=== PATIENT | male | born 1955 ===

== ENCOUNTER → 2024-04-25 | Day surgery (SDC) | payer OTHER, MEDICARE ==
[2024-04-13 14:38] LABS: Absolute Eosinophils 0.1 K/uL (0-0.5); Absolute Monocytes 0.7 K/uL (0.1-1.3); Absolute Neutrophil 5.4 K/uL (1.8-8.0); Basophils % 0.6 % (0-1.3); Eosinophils % 1.4 % (0-4.4); Hematocrit 43.4 % (39.6-49.0); Hemoglobin 15.1 g/dL (13.6-17.9); MCH 35.9 pg (27.0-35.0); MCHC 34.7 g/dL (32.0-36.0); MCV 103.3 fL (80-100); MPV 8.5 fL (7.6-11.3); Monocytes % 8.9 % (3.3-12.3); Neutrophils % 65.1 % (41.7-73.7); Nucleated Red Blood Cells % 0.1 % (0-0); Platelets 244 thou/uL (152-406); RBC Red Blood Cell Count 4.21 M/uL (4.33-5.43); Red Cell Distribution Width 13.4 % (12.1-15.2)
[2024-04-13 14:57] LABS: Anion Gap 8.5 mEq/L (5.0-15.0); PT Prothrombin Time 11.2 SECONDS (9.4-12.5); PTT, Activated Partial Thromb 32.8 SECONDS (24.3-36.9); Potassium 5.5 mEq/L (3.5-5.1); Protime INR 1.07
[~2024-04-25] MED LIST: FENTANYL CITR 100 MCG/2 ML ONE; HYDROCODONE/APAP 5/325 MG TAB PO PRN; LIDOCAINE 1% MPF 5 ML VIAL ONE; LIDOCAINE HCL/EPINEPHRINE 20 ML MDV ONE; MIDAZOLAM HCL 2 MG/2 ML INJ ONE; Phenylephrine HCl 10 MG/ML 1 ML VIAL ONE; ROCURONIUM 50 MG/5 ML VIAL IV ONE; propofoL 200 MG/20 ML VIAL IV ONE
[2024-04-25] MEDS: NA CHLORIDE 0.9% 500 ML ONE (11:30)
[2024-04-25] MEDS: CEFAZOLIN SODIUM 2 GM/VIAL ONE (13:45)
[2024-04-25] MEDS: BUPIVACAINE 0.25% PF 30 ML VIAL ONE (14:04)
[2024-04-25] MEDS: BACITRACIN OINTMENT 14 GM TUBE TOP ONE (14:42)
[2024-04-25] MEDS: DOXYCYCLINE 100 MG CAP PO ONE (14:43)
--- NOTE | 2024-04-25 15:30 | P.OP ---
Date of Service: 04/25/24 Preoperative diagnoses: Large left hydrocele Moderate-sized right hydrocele Postoperative diagnoses: Large left hydrocele Moderate-sized right hydrocele Principal procedures: [place] Left Hydrocelectomy Left hydrocele aspiration and doxycycline sclerosis Indications for procedure: The patient presented to the urology clinic initially bothered by the presence of a large left hydrocele. During the period of evaluation, he developed progressive enlargement of the right hydrocele. He was counseled accordingly about management options and elected formal hydrocelectomy on the left. We agreed to aspirate and sclerosed the right side even though the success rate is highly variable. Procedure note: The patient was consented in the preoperative holding area before being transferred to the operative suite where general anesthesia was induced. He was given Ancef 2 g IV antimicrobial prophylaxis, and pneumoboots were provided for DVT prophylaxis. He was placed supine on the procedure table, padded and secured appropriately. His genitalia was prepped with Betadine, shaved, and draped in standard fashion. The case was begun identifying a Valery's line incision in the left hemiscrotum anteriorly approximately 3-1/2 cm in diameter. An incision was made along that line using a 15 blade and deepened through the subcutaneous tissues using electrocautery. The dartos layers were divided and the tunica vaginalis was visible. I then dissected and freed the tunica vaginalis from the surrounding dartos layers along the anterior surface of the hydrocele sac from medial to lateral and superior to inferior. I then punctured the sac with an 18-gauge needle and decompressed it significantly of fluid. The fluid was clear yellow per routine. Once sufficiently decompressed, I was able to deliver the hydrocele sac through the incision into the operative field. There, I continued to blunt and sharply dissect the remaining dartos layers off of the parietal layer of the tunica vaginalis before ultimately dividing the hydrocele sac anteriorly from the cord down to the tail of the epididymis. I then folded the sac behind the testis and removed a significant portion of the sac before using 3-0 Vicryl in a running and every third interlocking fashion to provide a hemostatic closure of the sac behind the cord structures. I then carefully irrigated the entirety of the scrotum and testis before delivering the testis back into the scrotum on the left. I then identified the midline raphae and elevated it using an Allis clamp. I then passed an 18-gauge fill needle through the raphae into the right hemiscrotum, and I aspirated over 100 cc of straw-colored fluid. Once completely decompressed, I then created a mixture of 200 mg doxycycline in 20 cc quarter percent Marcaine. I then injected the mixture through the raphae into the right hemiscrotum. I then irrigated the intrascrotal contents and fulgurated any and all oozing capillaries and vessels within. I then closed the dartos layers of the incision using 3-0 Vicryl suture in a running fashion. The skin was then closed using 3-0 Monocryl suture also in a running fashion. We cleansed away the Betadine from his genitalia and applied bacitracin to the incision. Fluff gauze and then scrotal supportive jockstrap was then applied. He was then awakened from general anesthesia before being transferred to a stretcher. He was then transferred to the recovery room in good condition. Complications: None Discharge disposition: Follow-up should be established in about 6 to 8 weeks time interval assessment. He was discharged with a prescription for Bactrim, recognizing he takes an ARB/ROSSY inhibitor combination but is also on a loop diuretic. As a result, I instructed him to forego taking his K-Dur while on the Bactrim. He may resume his K-Dur, once he finishes taking the Bactrim, per routine. F
[2024-04-25] MEDS: ALBUTEROL 2.5 MG/3 ML NEB SOL ONE (15:37)
[2024-04-25 16:46] VITALS: BP 141/67; TEMP 97.8; O2SAT 98
== END | disposition home or self-care (01) ==
LOC: OR 10:57
PROVIDERS: ATTEND Urology
PROC: 0VB70ZZ Excision of Left Tunica Vaginalis, Open Approach (ICD-10-PCS; principal; 2024-04-25 13:15)
DX: N43.3 Hydrocele, unspecified (principal); I86.1 Scrotal varices
CPT/HCPCS: 87088; 85025; 87086; 80048; 36415; 85610; 85730; 87077; 87186; 55040; J2704; J2003; J2371; J7613; J2250; J3010 ×2; J7040; 88302